=== PATIENT | female | born 2000 | race Caucasian/White ===

== ENCOUNTER 2019-10-25 00:12 | Emergency (ER) | payer OTHER ==
[~2019-10-25] VITALS: Ht 165.1 cm; Wt 68.0 kg
[~2019-10-25 00:12] MED LIST: BIRTH CONTROL PILL; CEPHALEXIN 500500 M3 PO; KEFLEX500 MG PO; PHENERGAN 25 MG25 M1 PO; PRENATAL; ZOFRAN4 MG PO
[2019-10-25 00:30] LABS: URINE BILIRUBIN NEGATIVE (Negative); URINE BLOOD NEGATIVE (Negative); URINE CLARITY CLEAR; URINE COLOR YELLOW; URINE GLUCOSE-RANDOM NEGATIVE (Negative); URINE KETONES NEGATIVE (Negative); URINE NITRITE-REFLEX NEGATIVE (Negative); URINE PROTEIN NEGATIVE (Negative); URINE SPECIFIC GRAVITY >= 1.030 (1.005-1.030); URINE UROBILINOGEN 0.2 E.U./dl (0.2-1.0)
[2019-10-25 00:33] LABS: URINE LEUKOCYTES-REFLEX 2+ (Negative)
[2019-10-25 00:40] LABS: BACTERIA-REFLEX >30 Many /HPF (None Seen); CASTS None Seen /LPF (None Seen); CRYSTALS None Seen /LPF (None Seen); MUCUS 4-6 Moderate strn/LPF (None Seen); SQUAMOUS 4-10 Moderate /LPF (0-3); TRANSITIONAL EPITHEL CELL 0-3 Few /LPF (None Seen); URINE RBC 3-10 Few /HPF (0-2); WBC CLUMPS Few (None Seen)
[2019-10-25 00:53] LABS: INFLUENZA A ANTIGEN Negative (Negative); INFLUENZA B ANTIGEN Negative (Negative)
[2019-10-25 01:19] VITALS: BP 120/60
== END 2019-10-25 01:19 | disposition home or self-care (01) ==
LOC: M.ERS 00:12
PROVIDERS: Family Medicine
DX: O21.8 Other vomiting complicating pregnancy (principal); O26.891 Other specified pregnancy related conditions, first trimester; R42 Dizziness and giddiness; Z3A.01 Less than 8 weeks gestation of pregnancy